=== PATIENT | male | born 1980 | race Caucasian/White ===

== ENCOUNTER → 2016-11-08 | Outpatient (REF) | LOC: WSOH 15:30 | DX: Z01.83 Encounter for blood typing (principal) ==

== ENCOUNTER → 2017-02-20 | Outpatient (REF) | LOC: WSOH 10:01 | DX: Z02.89 Encounter for other administrative examinations (principal) ==

== ENCOUNTER → 2017-03-09 | Outpatient (REF) | LOC: WSOH 08:45 | DX: Z02.89 Encounter for other administrative examinations (principal) ==